=== PATIENT | male | born 1980 | race Caucasian/White ===

== ENCOUNTER → 2018-05-06 09:12 | Outpatient (REF) | payer BC, SELFPAY | LOC: NCHCN 09:12 | PROVIDERS: PCP Family Medicine; Visit Provider Specialist/Technologist Athletic Trainer | DX: R63.6 Underweight (principal); F17.200 Nicotine dependence, unspecified, uncomplicated; J02.9 Acute pharyngitis, unspecified | CPT/HCPCS: 87070 ==

== ENCOUNTER 2018-05-19 11:11 | Outpatient (REF) | payer BC, SELFPAY ==
[2018-05-19 20:46] LABS: Anion Gap 8.7 mmol/L (3-11); BUN 12 mg/dL (7-18); CO2 28.3 mmol/L (21.0-32.0); CREATININE 0.96 mg/dL (0.70-1.30); Calcium 9.5 mg/dL (8.5-10.1); Chloride 102 mmol/L (98-107); Cholesterol 153 mg/dL (50-200); Glucose 96 mg/dL (70-100); HDL Cholesterol 52 mg/dL (40-60); LDL CHOLESTEROL 87 mg/dL (<100); Potassium 3.9 mmol/L (3.5-5.1); Sodium 139 mmol/L (136-145); Triglyceride 85 mg/dL (30-150)
[2018-05-21 11:11] LABS: Syphilis Serology (RPR) Negative (Negative)
[2018-05-21 11:20] LABS: Hepatitis C Ab w Rflx HCV PCR Negative (NEGAT)
[2018-05-21 11:35] LABS: HIV-1/2 Ag & Ab Screen Negative (NEGAT)
[2018-05-21 13:47] LABS: Chlamydia Result Negative; GC Result Negative; Specimen Description URINE
== END 2018-05-19 11:31 ==
LOC: NCHCN 11:11
PROVIDERS: PCP Family Medicine; Visit Provider Specialist/Technologist Athletic Trainer
DX: Z11.3 Encounter for screening for infections with a predominantly sexual mode of transmission (principal); Z11.4 Encounter for screening for human immunodeficiency virus [HIV]; Z00.00 Encounter for general adult medical examination without abnormal findings; Z13.228 Encounter for screening for other metabolic disorders; Z11.59 Encounter for screening for other viral diseases; Z13.220 Encounter for screening for lipoid disorders; R63.6 Underweight
CPT/HCPCS: 80048; 80061; 83721; 86803; 87389; 87491; 87591; 86592

== ENCOUNTER 2019-11-14 15:29 | Emergency (ER) | payer SELFPAY ==
[2019-11-14 15:45] VITALS: BP 118/70; PULSE 74; RESP 14; TEMP 36.5; O2SAT 100
--- NOTE | 2019-11-14 16:13 | ED.GENADUL_ITS ---
Discharge Plan Disposition Patient Disposition: HOME Condition: Stable Discharge Details Chief Complaint: RashLesion Clinical Impression: Rash Primary Care Provider: Diego Banerjee ED Provider: Samina Fatima Home Meds and New Rx's Prescriptions: New triamcinolone acetonide 0.1 % cream 1 applic TP BID 7 Days Qty: 15 RF: 0 ketoconazole 2 % cream 1 applic TP DAILY 7 Days Qty: 15 RF: 0 Discharge Instructions Instructions: Acute Rash (ED) Additional Instructions: Follow up with primary care provider in 3-5 days. Return to ED sooner if any worsening or concerns. Increase oral fluids. Use triamcinolone cream as directed if rash worsens try ketoconazole cream. You can also use [id number] Benadryl to see if that helps 1 to 2 tablets every 6-8 hours. Stop using the new laundry detergent if possible. Referrals: Madie Medina [Emergency Nurse] - Discharge Data Discharge Date/Time-TO BE ENTERED AT DEPARTURE: 11/14/19 16:30 Medical Decision Making 39-year-old male presents with scattered scaly pruritic red rash noted to his anterior and posterior torso. Denies that is on his genitals or legs. He states he was using some new laundry detergent when this started. Denies fever or any other symptoms. Has not tried any [id number] remedies. This is most likely contact dermatitis due to new laundry detergent. It is in the shape of a T-shirt. Patient prescribed triamcinolone anti-inflammatory cream twice a day x7 days. Instructed if this rash gets worse to try an antifungal cream. Also instructed to try [id number] Benadryl as needed. Patient verbalized understanding. Differential diagnosis includes scabies, psoriasis, drug reaction. HPI General Mode of arrival: ambulatory . Date/Time Provider Initiated Documentation: 11/14/19 16:04 . Limitations to Documentation: no limitations . Information obtained by: patient . HPI Narrative: 39-year-old male presents with rash noted to his torso which began on Thursday. Patient states he is using a new laundry detergent. He does state it is itchy. He is noted to have a scattered dry small raised red rash to his anterior chest and back and abdomen. Denies having rash on his groin or legs. No wheezing, no trouble breathing, no fever. Related Data Home Medications Medication Instructions Recorded Confirmed ketoconazole 1 applic TP DAILY 7 Days #15 gm 11/14/19 triamcinolone acetonide 1 applic TP BID 7 Days #15 gm 11/14/19 Previous Rx's Medication Instructions Recorded ketoconazole 1 applic TP DAILY 7 Days #15 gm 11/14/19 triamcinolone acetonide 1 applic TP BID 7 Days #15 gm 11/14/19 Allergies Allergy/AdvReac Type Severity Reaction Status Date / Time mitchel Allergy Severe Anaphylaxsi Uncoded 11/14/19 16:32 s dust Allergy Mild Uncoded 11/14/19 16:32 General Stated Complaint: RashLesion NETO: 3 Review of Systems Narrative: Constitutional: Negative for weight loss, alert and oriented, well groomed, normal body habitus, appears comfortable. HEENT: Denies trauma, headaches, blurry vision, nasal discharge, sore throat, trouble swallowing. Chest: Denies chest pain, palpitations, irregular rhythm, hypertension. Respiratory: Denies Shortness of breath, cough, hemoptysis. GI: Denies abdominal pain, nausea, vomiting, diarrhea, constipation. : Denies dysuria, hematuria, flank pain, rectal bleeding. Skin: Positive rash noted to torso. Positive pruritus. Neuro: Denies dizziness, blurry vision, weakness, syncope, headache or facial numbness. Hematologic: Denies easy bruising, intolerance to heat or cold, hair loss. Integumentary/Breasts Skin/Breast: Reports rash (Torso scattered erythemic, scaling, and dry), Denies skin pain, Denies unusual bruising and Denies wounds [facility] Social History Smoking/Tobacco Use Status: Current every day Alcohol Intake: former Drug use: Daily Substance use type: marijuana Do you feel safe at home: Yes Do you feel safe in your relationship?: Yes Exam Narrative Exam Narrative: Constitutional: Allert and oriented x3. Appears stated age. Normal body habitus. Head: Normocephalic, no trauma. Eyes: Pupils PERRLA, Red reflex noted, EOM's intact. Eyelids symmetrical withour lesions, discharge, or swelling. ENT: Bilateral TM's WNL, External ear normal to inspection, no mastoid TTP, swelling, or erythema, Nasal turbinates WNL, no nasal discharge. Normal dentition, Posterior pharynx WNL, no exudate. Chest: RRR, Normal S1, S2, distal pulses intact. Resp: Lungs clear to auscultation bilaterally, no wheezes, rales, or rhonchi. Musculoskeletal: Normal gait, 5/5 strength to all four extremities. Skin: Scattered erythemic scaly rash noted to anterior chest abdomen and torso. Capillary refill ?2 sec. Neurologic: Cranial nerves II-XII intact. Alert and oriented x 3. DTR's intact. Hematologic/Lymphatic: No ecchymosis, no lymphadenopathy. Skin Rashes: rashes noted maculopapular rash diffuse upper truncal Course Vital Signs Vital signs: Vital Signs Temperature 36.5 C 11/14/19 15:45 Pulse 74 11/14/19 15:45 Respiratory Rate 14 11/14/19 15:45 Blood Pressure 118/70 11/14/19 15:45 Pulse Oximetry 100 11/14/19 15:45 Temperature 36.5 C 11/14/19 15:45 Temperature Source Skin 11/14/19 15:45 Pulse 74 11/14/19 15:45 Respiratory Rate 14 11/14/19 15:45 Respiratory Effort 11/14/19 15:50 Blood Pressure 118/70 11/14/19 15:45 Blood Pressure Position Sitting 11/14/19 15:45 Pulse Oximetry 100 11/14/19 15:45 Oxygen Delivery Method Room Air 11/14/19 15:45 Oxygen Flow Rate 0 11/14/19 15:45 Pain Level 9 11/14/19 15:45
== END 2019-11-14 16:30 | disposition home or self-care (01) ==
PROVIDERS: Emergency Provider Registered Nurse Emergency; PCP Family Medicine
DX: L24.0 Irritant contact dermatitis due to detergents (principal)
CPT/HCPCS: 99282; 99283

== ENCOUNTER 2023-01-07 10:17 | Emergency (ER) | payer SELFPAY ==
[2023-01-07 10:22] VITALS: PULSE 52; RESP 18; TEMP 36.4; O2SAT 100
[2023-01-07 10:26] VITALS: BP 165/94
--- NOTE | 2023-01-07 10:56 | NUR.NOTE ---
Addendum entered by David Worley RN 01/07/23 10:58: stated to access he had waited 20 min and that was too long Original Note: Pt left before being seen by provider
== END 2023-01-07 10:57 | disposition left against medical advice (07) ==
DX: Z53.21 Procedure and treatment not carried out due to patient leaving prior to being seen by health care provider (principal)